=== PATIENT | male | born 1975 | race Caucasian/White ===

== ENCOUNTER → 2020-05-10 17:02 | Outpatient (CLI) | payer OTHER, SELFPAY ==
[2020-03-16 07:56] VITALS: BMI 34.0
== END ==
PROVIDERS: PCP Family Medicine; Referring Provider Nurse Practitioner Acute Care; Visit Provider Nurse Practitioner Acute Care
DX: U07.1 COVID-19 (principal)
CPT/HCPCS: 87635; C9803; U0003

== ENCOUNTER 2020-05-18 12:38 | Inpatient (IN) | payer OTHER, SELFPAY ==
[2020-03-16 07:56] VITALS: BMI 34.0
[2020-05-18] VITALS (10 sets, daily range): BP systolic 103–118; BP diastolic 71–80; PULSE 79–92; RESP 20–36; TEMP 35.8–38.5; O2SAT 90–96; BMI 32.7; BMI 34.4
--- NOTE | 2020-05-18 12:50 | EKG12_ITS ---
Test Reason : SOB Blood Pressure : / mmHG Vent. Rate : 085 BPM Atrial Rate : 085 BPM P-R Int : 180 ms QRS Dur : 096 ms QT Int : 364 ms P-R-T Axes : 013 083 027 degrees QTc Int : 433 ms Normal sinus rhythm Normal ECG Confirmed by LAKSHMI GASCA, XENIA ([id number]), rewrite editor BRIANA VANEGAS ([id number]) on 05/23/2020 9:26:48 AM Referred By: DANIEL Confirmed By:JULIA MARTINS MD
--- NOTE | 2020-05-18 12:50 | RAD_ITS ---
STUDY: X-RAY CHEST REASON FOR EXAM: Male, 44 years old. DX W/COVID 05/12, CONTINUED DIFFICULTY BREATHING, COUGH, SHORTNESS OF BREATH TECHNIQUE: Single AP portable view of the chest. COMPARISON: None. FINDINGS: The lungs are underexpanded. Ill-defined subpleural groundglass opacities are seen more prominent in the lung bases , may represent atypical pneumonia or viral pneumonia (COVID-19 ?). There is no demonstrated pleural abnormality. Normal size heart. Normal mediastinum and sang. Normal visualized pulmonary arteries. Normal visualized aortic arch and descending thoracic aorta. Normal visualized thoracic spine. Normal visualized ribs, clavicles, and shoulders. There is no demonstrated abnormality of the visualized soft tissue structures of the upper abdomen. RAD/Chest 1 View (Portable) IMPRESSION: Ill-defined subpleural groundglass opacities are seen more prominent in the lung bases , may represent atypical pneumonia or viral pneumonia (COVID-19 ?). Electronically Signed: Lisa Gregory, at 13:38 EST Tel , Service support ,
--- NOTE | 2020-05-18 12:51 | ED.VISSUMM ---
- ER Visit Summary Date of Service: 05/18/20 Chief Complaint: Shortness of breath, cough, COVID-19 History of Present Illness: The patient is a 44 M who presents with the above symptoms. He tested + 6 days ago. He continues to have cough and shortness of breath. He has daily fevers that are controlled with ibuprofen. His temperature last night was 102.8 ?F. He tested his oxygen level today and it was 87% on room air. It recovered after he rested. He has no history of any lung problems. He is a non-smoker. He is having a little bit of chest discomfort in the upper part of his chest. Physical Examination: Vital signs reviewed. Pulse ox is 93% on room air currently. HEENT exam unremarkable. Heart is regular rate and rhythm without murmurs. Lungs have rhonchorous breath sounds in the bases bilaterally. Abdomen is soft and nontender. Extremities reveal no edema. Skin exam normal. Neurologic exam normal. Test Results: EKG is sinus rhythm with rate of 85. No ST changes. Laboratory studies show white blood cell count 2.9. Chemistry troponin normal. Chest x-ray shows bilateral groundglass opacities consistent with coronavirus. Emergency Department Course and Treatment: The patient ambulated in the room and his pulse ox was down to 89%. When he rested it came up to 94% but he was in the high 30s to almost 40 when he was ambulating. The patient was given 6 mg of IV Decadron. I feel due to his symptoms he should be admitted to the hospital. Patient was discussed with the hospitalist who admit the patient. Treatment Plan: [] Disposition: Admission Impression: COVID-19, hypoxia This note was generated with [employer] dictation software. It may contain incorrect words, spelling, and punctuation that were not noted in review of the chart prior to signing ED Disposition - Plan for ED Patient: Referrals: Faustino Ellis MD [Primary Care Provider] -
[2020-05-18] MEDS: dexAMETHasone 10 MG/ML Vial 6 MG IV (13:04)
[2020-05-18 13:28] LABS: Anion Gap 5 (5-15); BUN 16 mg/dL (7-18); BUN/Creat Ratio 12.5 RATIO (10-20); Calcium,Total 7.8 mg/dL (8.5-10.1); Chloride 107 mmol/L (98-107); Creatinine, Serum 1.28 mg/dL (0.70-1.30); EST Glomerular Filtration Rate 65 mL/min (>60); Est Glom Filt Rate - Afr Amer 79 mL/min (>60); Estimated Creatinine Clearance 86.52 ml/min; Glucose 87 mg/dL (74-106); Potassium 3.7 mmol/L (3.5-5.1); Sodium Level 139 mmol/L (136-145)
[2020-05-18 13:44] LABS: Absolute Lymphocyte Count 1.08 X10^3/uL (0.83-4.51); Absolute Neutrophil Count 1.5 X10^3/uL (2.0-7.7); Basophil# 0.02 X10^3/uL; Basophil% 0.7 % (0-1); Eosinophil# 0.02 X10^3/uL; Eosinophils% 0.7 % (0-5); Hematocrit 45.1 % (40-54); Hemoglobin 15.1 g/dL (13.0-16.5); Lymphocyte # 1.08 X10^3/ul (4.0); Lymphocyte % 37.6 % (19-41); Mean Corp Hgb Conc 33.5 g/dL (32-36); Mean Corpuscular Volume 89.7 fL (80-94); Mean Platelet Vol. 10.6 fl (6.2-12.0); Monocyte# 0.26 X10^3/uL; Monocyte% 9.1 % (0-10); NRBC Flagged by Analyzer 0 % (0-5); Neutrophil # 1.48 X10^3/uL (2.7-7.7); Neutrophil % 51.6 % (47-70); POSITIVE MORPHOLOGY YES; Platelet Count 144 K/mm3 (150-450); RBC Distribution Width SD 39.7 fl (35.1-43.9); Red Blood Count 5.03 M/mm3 (4.6-6.2); White Blood Count 2.9 K/mm3 (4.4-11.0)
[2020-05-18 13:45] LABS: Differential Indicated SCAN CRITERIA MET
[2020-05-18 13:48] LABS: Differential Comment SCANNED; Reactive Lymphocyte 1+
--- NOTE | 2020-05-18 14:29 | HP.PCM_ITS ---
Problem List (1) COVID-19 Status: Acute (2) Obstructive Sleep Apnea-Hypopnea Syndrome Status: Acute Comment: Overall AHI 10 (3) H/O adenoidectomy Status: Resolved (4) SOB (shortness of breath) on exertion Status: Acute (5) Hemorrhoids Status: Chronic (6) Sleep apnea Status: Chronic (7) Leukopenia Status: Acute (8) Thrombocytopenia Status: Acute History of Present Illness Date of Admission: 05/18/20 Mr Stout is a 44 year old M with a PMH of LUZ and obesity who tested + for COVID 19 6 days ago. He has been managing his symptoms at home with ibuprofen. He reports a fever of 102.8 last pm. Today he was having more SOB, especially noted with exertion, and assessed his SpO2 which was 87% on RA. Since he was more SOB and hypoxic he came to the ED. Sats on arrival here are 93% on RA, but he is tachypneic with a RR in the mid to upper 20's. He is currently afebrile. Besides the fever and SOB he is coughing a lot. The cough is dry and non- productive. He has had some pain in his chest with coughing only across the nipple line. He denies change N/V/diarrhea. His lab work show a leukopenia and thrombocytopenia. LFTs, fibrinogen and d-dimer are pending. His troponin was WNL and the rest of his BMP was unremarkable. CXR shows some RLL infiltrate vs atelectasis. He was given decadron in the ED today and we will admit him to the COVID unit. Past Medical History Past Medical History (Chronic Problems): Chronic Problems (Last Updated 03/16/20 @ 07:51 by Renae Palma) Hemorrhoids (Chronic) Sleep apnea (Chronic) Medical History: Medical History (Last Reviewed 05/18/20 @ 14:[address] Stefanie Roach, DO) SOB (shortness of breath) on exertion (Acute) R06.02 Hemorrhoids (Chronic) K64.9 Sleep apnea (Chronic) G47.30 Allergies No Known Allergies Allergy (Unverified 05/18/20 12:42) Home Medications: Ambulatory Orders Medication Instructions Recorded Ascorbic Acid [Vitamin C] 2,000 mg PO DAILY 05/18/20 Aspirin E.C. [Ecotrin] 325 mg PO DAILY@0800 05/18/20 Zinc 50 mg PO DAILY 05/18/20 Surgical History: Surgical History (Last Reviewed 05/18/20 @ 14:[address] Stefanie Roach DO) H/O adenoidectomy (Resolved) Z90.89 Lives: With Family Smoking Status: Never smoker Tobacco Use: Non-smoker Alcohol: Rare Drugs: None Review of Systems Constitutional: Reports: Chills, Fever, Malaise, Weakness, Fatigue. Denies: Anorexia, Night Sweats, Weight Change Eyes: Denies: Blurred vision, Conjunctivae Inflammation, Drainage, Eyelid Inflammation, Pain, Redness, Vision Change HEENT: Denies: Difficulty Hearing, Difficulty Swallowing, Head Aches, Nasal bleeding, Nasal Congestion, Post Nasal Drip, Sinus Congestion, Sinus Drainage, Sore Throat, Visual Changes Cardiovascular: Denies: Chest Pain, Chest Pressure, Chest Tightness, Edema, Light Headedness, Orthopnea, Palpitations, Paroxysmal Noc. Dyspnea, Syncope Respiratory: Reports: Cough, Pleuritic Pain, Shortness of Breath, Shortness of breath at rest - mild, Shortness of breath upon exertion - more extreme. Denies: Hemoptysis, Sputum production, Wheezing Gastrointestinal: Denies: Abdominal Pain, Constipation, Diarrhea, Dyspepsia, Hematemesis, Hematochezia, Nausea, Melena, Vomiting Genitourinary: Denies: Dysuria Musculoskeletal: Denies: Back Pain, Joint Pain, Joint stiffness, Joint swelling, Joint Tenderness, Muscle pain, Neck Pain Skin: Denies: Dryness, Jaundice, Lesions, Pruritis, Rash, Skin Changes, Wounds Neurological: Denies: Balance problems, Confusion, Focal weakness, Incoordination, Numbness, Tingling, Tremor, Seizures Psychiatric: Denies: Anxiety, Depression Endocrine: Denies: Change in Body Habitus, Heat/ Cold Intolerance, Polydipsia, Polyuria Hematologic/ Lymphatic: Denies: Adenopathy, Anemia, Easy Bruising, Easy Bleeding, Petechiae, Purpura VTE Information - Inpt Only VTE Present on Admission: No VTE Mechan Device Prophylaxis: None VTE Pharm Prophylaxis ordered?: Yes - Physical Exam Vitals/I&O's: Vital Signs Temp Pulse Resp BP Pulse Ox 96.4 F L 87 21 H 103/80 93 05/18/20 14:21 05/18/20 14:21 05/18/20 14:21 05/18/20 14:21 05/18/20 14:21 Oxygen Delivery Method Room Air Weight: 115.666 kg Body Mass Index (BMI) 32.7 General: Alert, Oriented x3, Cooperative, No apparent distress, Well developed, Well nourished, - - Middle Aged WM sitting up in bed, appears comfortable but notably dyspneic with conversation HEENT: Atraumatic, PERRLA, EOMI, Normocephalic, EAC Clear Oral: Moist Mucosa, No Gingival or Mucosal Lesions/ Ulcerations, - - mallampati 2, good dentition Neck: Supple, Trachea Midline, Thyroid Normal Size and Texture Lungs: No rhonchi, No wheeze, Rales - B Base to about 1/2 lung cabrera, - - no extremis or accessory mm use Abdomen: Bowel Sounds Present, Soft, Non Tender, Non-Distended, No hernias noted Extremities: No clubbing, No cyanosis, No edema, Capillary Refill Less than 3 Seconds, Peripheral Pulses Normal Skin: No rashes, No breakdown Musculoskeletal: No Tenderness to Palpation of Joints or Extremities, No Muscle Wasting Neurological: Cranial nerves II-XII grossly intact, Neuro grossly intact, Muscle tone normal, Coordination normal Psych/Mental Status: Normal Affect, Appropriate, - - very pleasant Laboratory Results 05/18/20 12:57: WBC 2.9 L, RBC 5.03, Hgb 15.1, Hct 45.1, MCV 89.7, MCH 30.0, MCHC 33.5, RDW Std Deviation 39.7, RDW Coeff of Audrey 12.0, Plt Count 144 L, MPV 10.6, Immature Gran % (Auto) 0.300, Neut % (Auto) 51.6, Lymph % (Auto) 37.6, [place] % (Auto) 9.1, Eos % (Auto) 0.7, Baso % (Auto) 0.7, Absolute Neuts (auto) 1. 5 L, Absolute Lymphs (auto) 1.08, Nucleated RBC % 0, Differential Comment SCANNED, Reactive Lymphocytes 1+ 05/18/20 12:57: Sodium 139, Potassium 3.7, Chloride 107, Carbon Dioxide 27.0, Anion Gap 5, BUN 16, Creatinine 1.28, Estim Creat Clear Calc 86.52, Est GFR (MDRD) Af Amer 79, Est GFR (MDRD) Non-Af 65, BUN/Creatinine Ratio 12.5, Glucose 87, Calcium 7.8 L, Troponin I < 0.015 05/18/20 12:57: Fibrinogen Pending, D-Dimer Quant (PE/DVT) Pending Current Medications Sodium Chloride (0.9% Saline Lock 10 Ml Syringe) 10 - 40 ml IV UD PRN PRN Reason: SALINE FLUSH Assessment/Plan All Active Problems (Last Updated 03/16/20 @ 07:51 by Renae Palma) COVID-19 (Acute) Leukopenia (Acute) Thrombocytopenia (Acute) Obstructive Sleep Apnea-Hypopnea Syndrome (Acute) H/O adenoidectomy (Resolved) SOB (shortness of breath) on exertion (Acute) Acute COVID PNA -supplemental O2 as needed -IS and Acapella -Decadron 6 mg daily--> 1st dose given in ED -Remdesivir day 1/5 -APAP for fevers -D-dimer and fibrinogen pending -will get CT if elevated -Lovenox 40 mg BID for now and adjust as needed -continue full dose ASA -cont Zinc/vitamin C -hepatic panel pending Acute Leukopenia -suspect related to COVID -monitor Acute Mild Thrombocytopenia -suspect related to COVID -monitor counts LUZ -Autopap ordered for HS Obesity -BMI 32.7-->complicates COVID dx DVT prophylaxis -Lovenox 40 mg BID Code Status -Full Inpatient E&M: 94570 Init Hosp L2
--- NOTE | 2020-05-18 14:42 | PCS.PANDOC ---
PANDEMIC DOCUMENTATION INITIATED: Date: 05/18/2020 Time: 0932
[2020-05-18] MEDS: Albuterol 2.5 MG/3 ML VIAL.NEB. INHALATION ×2 (15:26→19:36)
[2020-05-18] MEDS: Acetaminophen 325 MG Tablet 650 MG PO (15:38)
[2020-05-18 15:55] LABS: Fibrinogen 525 mg/dl (203-444)
--- NOTE | 2020-05-18 16:19 | CT_ITS ---
STUDY: CTA CHEST REASON FOR EXAM: Male, 44 years old. Hypoxia. COVID 19 positive. Fever. RADIATION DOSAGE (If Supplied By Facility): CTDIvol = ( 12.64 ) mGy, DLP = ( 460.69 ) mGycm TECHNIQUE: The examination was performed with the intravenous administration of IV 100mL Isovue-370. Post-processing of the angiographic images was performed, with multiplanar reformation and 3D reconstruction. Individualized dose optimization techniques were used for this CT. COMPARISON: Chest, 05/18/2020. FINDINGS: Normal enhancement of the main pulmonary artery and right and left pulmonary arteries. Normal enhancement of the bilateral peripheral pulmonary arteries. There is no demonstrated pulmonary embolism. Normal thoracic aorta and visualized great vessels. There is no demonstrated aortic dissection. Normal heart and pericardium. Nonspecific subcentimeter mediastinal lymphadenopathy. Normal hilar regions. Normal visualized trachea and bronchi. The lungs are well expanded. There is minimal peripheral patchy groundglass infiltrates most marked in the lower lobes. Evidence of mild consolidation in the posterior lung bases. Normal pleura. Normal chest wall structures. Normal osseous structures. Normal visualized upper abdomen. CT/CTA Chest W/WO Contrast IMPRESSION: 1. No evidence of pulmonary embolus. 2. No aortic dissection or aneurysm. 3. Patchy groundglass infiltrates with consolidation at the lung bases. The findings are consistent with COVID 19 pneumonia. Electronically Signed: Rohit Jauregui DO at 17:13 EST Tel [phone], Service support ,
--- NOTE | 2020-05-18 16:54 | PCM.HOSP.N ---
Hospitalist Note D-dimer elevated and CTA obtained. Shows RLL PE. Will start Eliquis 10 mg BID x 7 days then on 05/26/2019 5 mg BID for at least 3 mos.
[2020-05-18] MEDS: Ascorbic Acid 500 MG Tablet 2000 MG PO (17:02)
[2020-05-18] MEDS: BENZOCAINE/MENTHOL 1 LOZENGE MUCOUS MEM (17:02)
[2020-05-18 17:10] LABS: Bedside Glucose 164 mg/dL (70-110)
[2020-05-18] MEDS: APIXABAN 5 MG TABLET 10 MG PO (18:44)
[2020-05-18 21:50] LABS: Bedside Glucose 188 mg/dL (70-110)
--- NOTE | 2020-05-18 23:03 | CPS ---
Pt. started on AutoPAP, provided by [facility], with a 3L oxygen bleed-in. Pt.'s SpO2 = 95%
[2020-05-19] VITALS (12 sets, daily range): BP systolic 107–139; BP diastolic 64–86; PULSE 68–89; RESP 17–20; TEMP 36.5–36.9; O2SAT 92–95
[2020-05-19] MEDS: BENZOCAINE/MENTHOL 1 LOZENGE MUCOUS MEM (05:10)
[2020-05-19] MEDS: Albuterol 2.5 MG/3 ML VIAL.NEB. INHALATION (05:34)
[2020-05-19 07:31] LABS: Hematocrit 42.6 % (40-54); Hemoglobin 14.6 g/dL (13.0-16.5); Mean Corp Hgb Conc 34.3 g/dL (32-36); Mean Corpuscular Hgb 30.4 pg (27.0-32.0); Mean Corpuscular Volume 88.8 fL (80-94); Mean Platelet Vol. 10.5 fl (6.2-12.0); Platelet Count 168 K/mm3 (150-450); RBC Distribution Width CV 11.9 % (11.6-14.6); RBC Distribution Width SD 38.9 fl (35.1-43.9); White Blood Count 2.8 K/mm3 (4.4-11.0)
[2020-05-19 07:48] LABS: ALB/GLOB Ratio 1.1 RATIO (0.9-2.4); AST(SGOT) 25 U/L (15-37); Alanine Aminotransfer ALT/SGPT 35 U/L (16-61); Albumin, Serum 3.2 g/dL (3.2-5.0); Alkaline Phosphatase 52 U/L (45-117); Anion Gap 7 (5-15); BUN 20 mg/dL (7-18); BUN/Creat Ratio 18.7 RATIO (10-20); Bilirubin, Direct 0.14 mg/dL (0.00-0.30); Chloride 105 mmol/L (98-107); Creatinine, Serum 1.07 mg/dL (0.70-1.30); EST Glomerular Filtration Rate 80 mL/min (>60); Est Glom Filt Rate - Afr Amer 97 mL/min (>60); Glucose 119 mg/dL (74-106); Magnesium 2.4 mg/dL (1.6-2.6); Phosphorus 3.4 mg/dL (2.5-4.9); Potassium 3.9 mmol/L (3.5-5.1); Protein, Total 6.2 g/dL (6.4-8.2); Sodium Level 137 mmol/L (136-145)
--- NOTE | 2020-05-19 07:59 | PCM.PN.HOSP ---
Patient Problems: Active and Suspected Problems (Last Reviewed 05/18/20 @ 14:[address] Stefanie Roach, DO) COVID-19 (Acute) Leukopenia (Acute) Thrombocytopenia (Acute) Obstructive Sleep Apnea-Hypopnea Syndrome (Acute) Overall AHI 10 SOB (shortness of breath) on exertion (Acute) Reason for Visit: Follow-up for acute COVID-19 pneumonia with cough and fever. Objective: Fever, T-max 101.3 Fahrenheit. On 2 L of oxygen. BMI 34.4 Patient admitted with symptoms of intermittent fever, cough mild shortness of breath, hypoxia pulse ox 87% on room air, progressively worsening since 05/12. CTA shows mild peripheral nonobstructive pulmonary embolism. On Eliquis. Patient used CPAP for the first time last night and felt mild comfortable. We will do humidified air with CPAP. Physical exam General: Alert, Oriented x3, Cooperative HEENT: Atraumatic, PERRLA, EOMI, Normocephalic Oral: No Gingival or Mucosal Lesions/ Ulcerations Neck: Supple, No JVD, Negative Carotid Bruits Lungs: Air entry diminished in bilateral lung bases. Bilateral coarse crepitation present. Cardiovascular: Regular rate, Regular Rhythm, Normal S1, Normal S2, No murmurs Abdomen: Bowel Sounds Present, Soft, Non Tender, Non-Distended : No renal angle tenderness. No suprapubic tenderness. Extremities: No edema, Capillary Refill Less than 3 Seconds Skin: No rashes, No breakdown Musculoskeletal: No Tenderness to Palpation of Joints or Extremities Neurological: Cranial nerves II-XII grossly intact, Deep Tendon Reflexes 2+/4 and Symmetrical, Neuro grossly intact Psych/Mental Status: Normal Affect, Appropriate. Vitals/I&O's: Vital Signs Temp Pulse Resp BP Pulse Ox 97.7 F L 85 20 H 107/65 92 05/19/20 03:07 05/19/20 05:34 05/19/20 05:34 05/19/20 03:07 05/19/20 03:07 Oxygen Flow Rate (L/min) 2 Oxygen Delivery Method CPAP Weight: 268 lb 3.2 oz Body Mass Index (BMI) 34.4 Intake and Output for Last 24 Hours 05/17/20 05/18/20 05/19/20 23:59 23:59 23:59 Intake Total 670 / 1470 1400 / 1400 Balance 670 / 1470 1400 / 1400 Laboratory Results 05/18/20 12:57: WBC 2.9 L, RBC 5.03, Hgb 15.1, Hct 45.1, MCV 89.7, MCH 30.0, MCHC 33.5, RDW Std Deviation 39.7, RDW Coeff of Audrey 12.0, Plt Count 144 L, MPV 10.6, Immature Gran % (Auto) 0.300, Neut % (Auto) 51.6, Lymph % (Auto) 37.6, [place] % (Auto) 9.1, Eos % (Auto) 0.7, Baso % (Auto) 0.7, Absolute Neuts (auto) 1.5 L, Absolute Lymphs (auto) 1.08, Nucleated RBC % 0, Differential Comment SCANNED, Reactive Lymphocytes 1+ 05/18/20 12:57: Sodium 139, Potassium 3.7, Chloride 107, Carbon Dioxide 27.0, Anion Gap 5, BUN 16, Creatinine 1.28, Estim Creat Clear Calc 86.52, Est GFR (MDRD) Af Amer 79, Est GFR (MDRD) Non-Af 65, BUN/Creatinine Ratio 12.5, Glucose 87, Calcium 7.8 L, Troponin I < 0.015 05/18/20 15:28: Fibrinogen 525 H, D-Dimer Quant (PE/DVT) 0.90 H* 05/18/20 16:56: POC Glucose 164 H 05/18/20 21:36: POC Glucose 188 H 05/19/20 06:50: Sodium 137, Potassium 3.9, Chloride 105, Carbon Dioxide 25.0, Anion Gap 7, BUN 20 H, Creatinine 1.07, Estim Creat Clear Calc 103.50, Est GFR (MDRD) Af Amer 97, Est GFR (MDRD) Non-Af 80, BUN/Creatinine Ratio 18.7, Glucose 119 H, Calcium 8.0 L, Phosphorus 3.4, Magnesium 2.4, Total Bilirubin 0.40, Direct Bilirubin 0.14, AST 25, ALT 35, Alkaline Phosphatase 52, Total Protein 6.2 L, Albumin 3.2, Globulin 3.0, Albumin/Globulin Ratio 1.1 05/19/20 06:50: WBC 2.8 L, RBC 4.80, Hgb 14.6, Hct 42.6, MCV 88.8, MCH 30.4, MCHC 34.3, RDW Std Deviation 38.9, RDW Coeff of Audrey 11.9, Plt Count 168, MPV 10.5 Current Medications Acetaminophen (Acetaminophen 325 Mg Tablet) 650 mg PO Q6H PRN PRN PRN Reason: Pain Score 1-10/Temp > 100.7 F Last Admin: 05/18/20 15:38 Dose: 650 mg Documented by: Albuterol Sulfate (Albuterol 2.5 Mg/3 Ml Vial.Neb.) 2.5 mg INHALATION Q2H PRN PRN PRN Reason: Shortness of Breath/Wheezing Last Admin: 05/19/20 05:34 Dose: 2.5 mg Documented by: Apixaban (Apixaban 5 Mg Tablet) 10 mg PO BID [facility] Stop: 05/25/20 22:01 Last Admin: 05/18/20 18:44 Dose: 10 mg Documented by: Apixaban (Apixaban 5 Mg Tablet) 5 mg PO BID [facility] Ascorbic Acid (Ascorbic Acid 500 Mg Tablet) 2,000 mg PO DAILY [facility] Last Admin: 05/18/20 17:02 Dose: 2,000 mg Documented by: Dexamethasone (Dexamethasone 4 Mg Tablet) 6 mg PO DAILY [facility] Docusate Sodium (Docusate Sodium 100 Mg Capsule) 100 mg PO BID PRN PRN PRN Reason: Constipation Remdesivir 100 mg/ Sodium (Chloride) 250 mls @ 125 mls/hr IV DAILY [facility] Stop: 05/22/20 11:59 Melatonin (Melatonin 3 Mg Tablet) 3 mg PO QHS PRN PRN PRN Reason: INSOMNIA Ondansetron HCl (Ondansetron 4 Mg/2 Ml Vial) 4 mg IV Q8H PRN PRN PRN Reason: NAUSEA/VOMITING Sodium Chloride (0.9% Saline Lock 10 Ml Syringe) 10 - 40 ml IV UD PRN PRN Reason: SALINE FLUSH Throat Lozenges (Benzocaine/Menthol 1 Lozenge) 1 lozenge MUCOUS MEM Q2H PRN PRN PRN Reason: SORE THROAT Last Admin: 05/19/20 05:10 Dose: 1 lozenge Documented by: Zinc Sulfate (Zinc Sulfate (50mg Elemental) 220 Mg Capsule) 220 mg PO DAILY [facility] Last Admin: 05/18/20 17:06 Dose: 220 mg Documented by: STROKE Vital Signs/Narrative: Vital Signs Pulse Resp 05/19/20 05:34 85 20 H Medical Necessity - Tobacco Use Smoking Status: Never smoker Tobacco Use: Non-smoker Assessment/Plan All Active Problems (Last Reviewed 05/18/20 @ 14:[address] Stefanie Roach, DO) COVID-19 (Acute) Leukopenia (Acute) Thrombocytopenia (Acute) Obstructive Sleep Apnea-Hypopnea Syndrome (Acute) H/O adenoidectomy (Resolved) SOB (shortness of breath) on exertion (Acute) This is a 44-year-old gentleman with no significant past medical history except obstructive sleep apnea on auto PEEP was admitted with 6 days history of fever, chills, cough, mild shortness of breath and mild hypoxia. CTPA showed bilateral PE and on Eliquis. Acute bilateral COVID-19 pneumonia with bilateral pulmonary emboli: Patient is being admitted on MedSurg. Patient tested positive for COVID-19 on 6 days ago, 05/12/2020. CT chest was individually reviewed although reported negative and first report, subsequently an addendum reported bilateral small nonobstructive thrombus and peripheral pulmonary artery of right medial basal segment and peripheral left lower lobe pulmonary artery. Patient on remdesivir, Decadron, oxygen therapy, zinc and vitamin C. Patient was seen by ID. On therapeutic dose of Eliquis. Labs reviewed and shows elevated D-dimer, leukopenia, neutropenia but normal lymphocyte. Fibrinogen elevated. Patient further said his father has history of thromboembolism. Continue incentive spirometry and chest physiotherapy. On Mucinex. Mild thrombocytopenia has resolved. Sleep apnea: Auto PAP. Add humidified air. 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 He is well aware of weight loss and diet. CODE STATUS: Full code I discussed with the patient's brother, Dr. Clinton Stout gave the clinical update and discussed treatment plan. Clinical Impression(s) from Imaging Studies Chest X-Ray 05/18/20 12:50 IMPRESSION: Ill-defined subpleural groundglass opacities are seen more prominent in the lung bases , may represent atypical pneumonia or viral pneumonia (COVID-19 ?). Electronically Signed: Lisa Gregory, at 13:38 EST Tel , Service support , Clinical Impression(s) from Imaging Studies Chest X-Ray 05/18/20 12:50 IMPRESSION: Ill-defined subpleural groundglass opacities are seen more prominent in the lung bases , may represent atypical pneumonia or viral pneumonia (COVID-19 ?). Electronically Signed: Gonzalez Colt, at 13:38 EST Tel , Service support , Chest CTA 05/18/20 16:19 IMPRESSION: 1. No evidence of pulmonary embolus. 2. No aortic dissection or aneurysm. 3. Patchy groundglass infiltrates with consolidation at the lung bases. The findings are consistent with COVID 19 pneumonia. M: 05/18/20 1823 Inpatient E&M: 72618 Subs Hosp L2
[2020-05-19] MEDS: Ascorbic Acid 500 MG Tablet 2000 MG PO (08:17)
[2020-05-19] MEDS: APIXABAN 5 MG TABLET 10 MG PO ×2 (08:18→20:57)
[2020-05-19] MEDS: dexAMETHasone 4 MG Tablet 6 MG PO (08:18)
[2020-05-19 08:46] LABS: Bedside Glucose 110 mg/dL (70-110)
--- NOTE | 2020-05-19 13:11 | PCM.HP.ID ---
Problem List (1) COVID-19 Status: Acute Reason for Consult: covid Consulted by: Dr. Mckeon History of Present Illness: The patient is a 44 year old M presented with sx since 05/10, developed cough, headache, tested (+) covid. Past few days with worsening fever, chills, dyspnea, fatigue. Slight change in taste. and son also sick, did not get tested, doing ok. Sats dropped into upper 80s, came to ED, admitted on dex, remdesivir. Feeling about the same today. Full ROS performed and neg except as noted above. - Medical History Past Medical History (Chronic Problems): Chronic Problems (Last Reviewed 05/18/20 @ 14:[address] Stefanie Roach, DO) Hemorrhoids (Chronic) Sleep apnea (Chronic) Allergies/Adverse Reactions: Allergies No Known Allergies Allergy (Unverified 05/18/20 12:42) Home Medications: Ambulatory Orders Medication Instructions Recorded Ascorbic Acid [Vitamin C] 2,000 mg PO DAILY 05/18/20 Aspirin E.C. [Ecotrin] 325 mg PO DAILY@0800 05/18/20 Zinc 50 mg PO DAILY 05/18/20 - Social History Tobacco Use: non-smoker Vital Signs Temp Pulse Resp BP Pulse Ox 98.2 F 74 20 H 108/64 94 05/19/20 09:00 05/19/20 09:00 05/19/20 09:00 05/19/20 09:00 05/19/20 09:00 Oxygen Flow Rate (L/min) 3 Oxygen Delivery Method Nasal Cannula Weight: 121.653 kg Body Mass Index (BMI) 34.4 Laboratory Tests Past 24 Hrs 05/18/20 05/18/20 05/18/20 12:57 12:57 15:28 WBC 2.9 L RBC 5.03 Hgb 15.1 Hct 45.1 MCV 89.7 MCH 30.0 MCHC 33.5 RDW Std Deviation 39.7 RDW Coeff of Audrey 12.0 Plt Count 144 L MPV 10.6 Immature Gran % (Auto) 0.300 Neut % (Auto) 51.6 Lymph % (Auto) 37.6 [place] % (Auto) 9.1 Eos % (Auto) 0.7 Baso % (Auto) 0.7 Absolute Neuts (auto) 1.5 L Absolute Lymphs (auto) 1.08 Nucleated RBC % 0 Differential Comment SCANNED Reactive Lymphocytes 1+ Fibrinogen 525 H D-Dimer Quant (PE/DVT) 0.90 H* Sodium 139 Potassium 3.7 Chloride 107 Carbon Dioxide 27.0 Anion Gap 5 BUN 16 Creatinine 1.28 Estim Creat Clear Calc 86.52 Est GFR (MDRD) Af Amer 79 Est GFR (MDRD) Non-Af 65 BUN/Creatinine Ratio 12.5 Glucose 87 Calcium 7.8 L Phosphorus Magnesium Total Bilirubin Direct Bilirubin AST ALT Alkaline Phosphatase Troponin I < 0.015 Total Protein Albumin Globulin Albumin/Globulin Ratio 05/19/20 05/19/20 06:50 06:50 WBC 2.8 L RBC 4.80 Hgb 14.6 Hct 42.6 MCV 88.8 MCH 30.4 MCHC 34.3 RDW Std Deviation 38.9 RDW Coeff of Audrey 11.9 Plt Count 168 MPV 10.5 Immature Gran % (Auto) Neut % (Auto) Lymph % (Auto) [place] % (Auto) Eos % (Auto) Baso % (Auto) Absolute Neuts (auto) Absolute Lymphs (auto) Nucleated RBC % Differential Comment Reactive Lymphocytes Fibrinogen D-Dimer Quant (PE/DVT) Sodium 137 Potassium 3.9 Chloride 105 Carbon Dioxide 25.0 Anion Gap 7 BUN 20 H Creatinine 1.07 Estim Creat Clear Calc 103.50 Est GFR (MDRD) Af Amer 97 Est GFR (MDRD) Non-Af 80 BUN/Creatinine Ratio 18.7 Glucose 119 H Calcium 8.0 L Phosphorus 3.4 Magnesium 2.4 Total Bilirubin 0.40 Direct Bilirubin 0.14 AST 25 ALT 35 Alkaline Phosphatase 52 Troponin I Total Protein 6.2 L Albumin 3.2 Globulin 3.0 Albumin/Globulin Ratio 1.1 - Other Studies Radiology: [] reviewed Other Studies: [] Route of nutrition/ use of supplements: [] Nutritional Intake: [] IV Site: [] Matute Catheter: [] - Physical Exam General: Alert, Oriented x3, Cooperative, No apparent distress HEENT: Atraumatic, PERRLA, EOMI Neck: Supple, No Nodes Lungs: Diminished Cardiovascular: Regular rate, Regular Rhythm Abdomen: Soft, Non Tender, Non-Distended Extremities: No edema Skin: No rashes IV Site: Peripheral, without redness Musculoskeletal: No Tenderness to Palpation of Joints or Extremities Neurological: Cranial nerves II-XII grossly intact - Assessment/Plan Antibiotics: [] Assessment/Plan: [] Active and Suspected Problems (Last Reviewed 05/18/20 @ 14:[address] Stefanie Roach, DO) COVID-19 (Acute) Leukopenia (Acute) Thrombocytopenia (Acute) Obstructive Sleep Apnea-Hypopnea Syndrome (Acute) Overall AHI 10 SOB (shortness of breath) on exertion (Acute) covid with hypoxia - sx started 05/10, and son also sick. D-dimer 0.9, CT showed PE. Started on eliquis. On dex and remdesivir. Plan on 20 day quarantine from start of symptoms, 10 days total of dex. Will follow, thank you. D/w nursing.
[2020-05-19] MEDS: guaiFENesin 1,200 MG Tablet 1200 MG PO ×2 (15:13→20:57)
--- NOTE | 2020-05-19 15:19 | CASEMGMT ---
Addendum entered by Jose Enrique Brooks 05/19/20 15:36: [facility], [facility], [place] or [facility]. Scripts attached to Green sheet on chart. Original Note: TRANG CM Note: attempted call x 2 to patient room. No answer. Gely MEDINAN TRANG ACM
[2020-05-20] VITALS (16 sets, daily range): BP systolic 98–122; BP diastolic 68–82; PULSE 58–89; RESP 18–20; TEMP 36.4–36.8; O2SAT 92–94
--- NOTE | 2020-05-20 00:27 | CPS ---
SLEEP LAB AUTO PAP WITH 2L OXYGEN BLEED IN
[2020-05-20 05:12] LABS: Hematocrit 43.2 % (40-54); Hemoglobin 14.2 g/dL (13.0-16.5); Mean Corp Hgb Conc 32.9 g/dL (32-36); Mean Corpuscular Hgb 29.6 pg (27.0-32.0); Mean Platelet Vol. 9.8 fl (6.2-12.0); Platelet Count 205 K/mm3 (150-450); RBC Distribution Width CV 12.2 % (11.6-14.6); RBC Distribution Width SD 40.8 fl (35.1-43.9); White Blood Count 5.5 K/mm3 (4.4-11.0)
[2020-05-20 05:39] LABS: ALB/GLOB Ratio 0.9 RATIO (0.9-2.4); AST(SGOT) 21 U/L (15-37); Alanine Aminotransfer ALT/SGPT 35 U/L (16-61); Albumin, Serum 3.1 g/dL (3.2-5.0); Alkaline Phosphatase 53 U/L (45-117); Anion Gap 6 (5-15); BUN 27 mg/dL (7-18); BUN/Creat Ratio 26.2 RATIO (10-20); Calcium,Total 8.2 mg/dL (8.5-10.1); Chloride 107 mmol/L (98-107); Creatinine, Serum 1.03 mg/dL (0.70-1.30); EST Glomerular Filtration Rate 83 mL/min (>60); Est Glom Filt Rate - Afr Amer 101 mL/min (>60); Estimated Creatinine Clearance 107.52 ml/min; Globulin 3.4 g/dL (2.2-4.2); Glucose 123 mg/dL (74-106); Potassium 4.4 mmol/L (3.5-5.1); Protein, Total 6.5 g/dL (6.4-8.2); Sodium Level 138 mmol/L (136-145)
--- NOTE | 2020-05-20 08:01 | PN_ITS ---
Patient Problems: Active and Suspected Problems (Last Reviewed 05/18/20 @ 14:[address] Stefanie Roach, DO) COVID-19 (Acute) Leukopenia (Acute) Thrombocytopenia (Acute) Obstructive Sleep Apnea-Hypopnea Syndrome (Acute) Overall AHI 10 SOB (shortness of breath) on exertion (Acute) Reason for Visit: Follow-up for acute hypoxic respiratory insufficiency from COVID-19 pneumonia Objective: Afebrile. On 2 L of oxygen. CPAP at night. Blood pressure within normal limit. Patient could not sleep last night and looks exhausted and tired. Gets short of breath on coughing bouts. Patient able to bring up phlegm. Physical exam General: Alert, Oriented x3, Cooperative HEENT: Atraumatic, PERRLA, EOMI, Normocephalic Oral: No Gingival or Mucosal Lesions/ Ulcerations Neck: Supple, No JVD, Negative Carotid Bruits Lungs: Air entry diminished in bilateral lung bases. Bilateral coarse crepitations present. Cardiovascular: Regular rate, Regular Rhythm, Normal S1, Normal S2, No murmurs Abdomen: Bowel Sounds Present, Soft, Non Tender, Non-Distended : No renal angle tenderness. No suprapubic tenderness. Extremities: No edema, Capillary Refill Less than 3 Seconds Skin: No rashes, No breakdown Musculoskeletal: No Tenderness to Palpation of Joints or Extremities Neurological: Cranial nerves II-XII grossly intact, Deep Tendon Reflexes 2+/4 and Symmetrical, Neuro grossly intact Psych/Mental Status: Normal Affect, Appropriate. Vitals/I&O's: Vital Signs Temp Pulse Resp BP Pulse Ox 98.2 F 63 18 115/82 H 92 05/20/20 02:40 05/20/20 07:10 05/20/20 02:40 05/20/20 02:40 05/20/20 02:40 Oxygen Flow Rate (L/min) 2 Oxygen Delivery Method CPAP Weight: 268 lb 3.183 oz Body Mass Index (BMI) 34.4 Intake and Output for Last 24 Hours 05/18/20 05/19/20 05/20/20 23:59 23:59 23:59 Intake Total 670 / 1470 2250 / 2250 Balance 670 / 1470 2250 / 2250 Laboratory Results 05/19/20 08:10: POC Glucose 110 05/20/20 04:54: WBC 5.5, RBC 4.80, Hgb 14.2, Hct 43.2, MCV 90.0, MCH 29.6, MCHC 32.9, RDW Std Deviation 40.8, RDW Coeff of Audrey 12.2, Plt Count 205, MPV 9.8 05/20/20 04:54: Sodium 138, Potassium 4.4, Chloride 107, Carbon Dioxide 25.0, Anion Gap 6, BUN 27 H, Creatinine 1.03, Estim Creat Clear Calc 107.52, Est GFR (MDRD) Af Amer 101, Est GFR (MDRD) Non-Af 83, BUN/Creatinine Ratio 26.2 H, Glucose 123 H, Calcium 8.2 L, Total Bilirubin 0.40, AST 21, ALT 35, Alkaline Phosphatase 53, Total Protein 6.5, Albumin 3.1 L, Globulin 3.4, Albumin/Globulin Ratio 0.9 Current Medications Acetaminophen (Acetaminophen 325 Mg Tablet) 650 mg PO Q6H PRN PRN PRN Reason: Pain Score 1-10/Temp > 100.7 F Last Admin: 05/18/20 15:38 Dose: 650 mg Documented by: Albuterol Sulfate (Albuterol 2.5 Mg/3 Ml Vial.Neb.) 2.5 mg INHALATION Q2H PRN PRN PRN Reason: Shortness of Breath/Wheezing Last Admin: 05/19/20 05:34 Dose: 2.5 mg Documented by: Apixaban (Apixaban 5 Mg Tablet) 10 mg PO BID [facility] Stop: 05/25/20 22:01 Last Admin: 05/19/20 20:57 Dose: 10 mg Documented by: Apixaban (Apixaban 5 Mg Tablet) 5 mg PO BID [facility] Ascorbic Acid (Ascorbic Acid 500 Mg Tablet) 2,000 mg PO DAILY [facility] Last Admin: 05/19/20 08:17 Dose: 2,000 mg Documented by: Dexamethasone (Dexamethasone 4 Mg Tablet) 6 mg PO DAILY [facility] Stop: 05/27/20 10:01 Last Admin: 05/19/20 08:18 Dose: 6 mg Documented by: Docusate Sodium (Docusate Sodium 100 Mg Capsule) 100 mg PO BID PRN PRN PRN Reason: Constipation Guaifenesin (Guaifenesin 1,200 Mg Tablet) 1,200 mg PO BID [facility] Last Admin: 05/19/20 20:57 Dose: 1,200 mg Documented by: Remdesivir 100 mg/ Sodium (Chloride) 250 mls @ 125 mls/hr IV DAILY [facility] Stop: 05/22/20 11:59 Last Infusion: 05/19/20 14:17 Dose: Infused Documented by: Melatonin (Melatonin 3 Mg Tablet) 3 mg PO QHS PRN PRN PRN Reason: INSOMNIA Ondansetron HCl (Ondansetron 4 Mg/2 Ml Vial) 4 mg IV Q8H PRN PRN PRN Reason: NAUSEA/VOMITING Sodium Chloride (0.9% Saline Lock 10 Ml Syringe) 10 - 40 ml IV UD PRN PRN Reason: SALINE FLUSH Throat Lozenges (Benzocaine/Menthol 1 Lozenge) 1 lozenge MUCOUS MEM Q2H PRN PRN PRN Reason: SORE THROAT Last Admin: 05/19/20 05:10 Dose: 1 lozenge Documented by: Zinc Sulfate (Zinc Sulfate (50mg Elemental) 220 Mg Capsule) 220 mg PO DAILY [facility] Last Admin: 05/19/20 08:18 Dose: 220 mg Documented by: STROKE Vital Signs/Narrative: Vital Signs Pulse 05/20/20 07:10 63 Medical Necessity - Tobacco Use Smoking Status: Never smoker Tobacco Use: Non-smoker Assessment/Plan All Active Problems (Last Reviewed 05/18/20 @ 14:[address] Stefanie Roach DO) COVID-19 (Acute) Leukopenia (Acute) Thrombocytopenia (Acute) Obstructive Sleep Apnea-Hypopnea Syndrome (Acute) H/O adenoidectomy (Resolved) SOB (shortness of breath) on exertion (Acute) This is a 44-year-old gentleman with no significant past medical history except obstructive sleep apnea on auto PEEP was admitted with 6 days history of fever, chills, cough, mild shortness of breath and mild hypoxia. CTPA showed bilateral PE and on Eliquis. 1. Acute bilateral COVID-19 pneumonia with bilateral pulmonary emboli: Patient is being admitted on [facility]. Patient tested positive for COVID-19 on 6 days ago, 05/12/2020. CT chest was individually reviewed although reported negative and first report, subsequently an addendum reported bilateral small nonobstructive thrombus and peripheral pulmonary artery of right medial basal segment and peripheral left lower lobe pulmonary artery. Patient on remdesivir, Decadron, oxygen therapy, zinc and vitamin C. Patient was seen by ID. On therapeutic dose of Eliquis. Labs reviewed and shows elevated D-dimer, leukopenia, neutropenia but normal lymphocyte. Fibrinogen elevated. Patient further said his father has history of thromboembolism. Continue incentive spirometry and chest physiotherapy. On Mucinex. Mild thrombocytopenia has resolved. Sleep apnea: Auto C-PAP. Patient had humidified air. 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 He is well aware of weight loss and diet. CODE STATUS: Full code I discussed with the patient's brother, Dr. Clinton Stout gave the clinical update and discussed treatment plan. Clinical Impression(s) from Imaging Studies Chest X-Ray 05/18/20 12:50 IMPRESSION: Ill-defined subpleural groundglass opacities are seen more prominent in the lung bases , may represent atypical pneumonia or viral pneumonia (COVID-19 ?). Electronically Signed: Lisa Gregory, at 13:38 EST Tel , Service support , Clinical Impression(s) from Imaging Studies Chest X-Ray 05/18/20 12:50 IMPRESSION: Ill-defined subpleural groundglass opacities are seen more prominent in the lung bases , may represent atypical pneumonia or viral pneumonia (COVID-19 ?). Electronically Signed: Lisa Gregory, at 13:38 EST Tel , Service support , Chest CTA 05/18/20 16:19 IMPRESSION: 1. No evidence of pulmonary embolus. 2. No aortic dissection or aneurysm. 3. Patchy groundglass infiltrates with consolidation at the lung bases. The findings are consistent with COVID 19 pneumonia. M: 05/18/20 1823 Inpatient E&M: 32369 Subs Hosp L2
[2020-05-20] MEDS: Ascorbic Acid 500 MG Tablet 2000 MG PO (10:32)
[2020-05-20] MEDS: APIXABAN 5 MG TABLET 10 MG PO ×2 (10:33→22:14)
[2020-05-20] MEDS: dexAMETHasone 4 MG Tablet 6 MG PO (10:34)
[2020-05-20] MEDS: 0.9% Saline Lock 10 ML Syringe IV (10:35)
[2020-05-20] MEDS: guaiFENesin 1,200 MG Tablet 1200 MG PO ×2 (10:35→22:14)
--- NOTE | 2020-05-20 12:07 | NURSING ---
At approximately 1030 this morning, This nurse decreased oxygen from 2L NC to 1.5L NC and pt seems to be tolerating well at rest. PT is on a step down monitor and can see his spo2 at the bedside but also, this nurse can monitor from the desk.
[2020-05-21] VITALS (9 sets, daily range): BP systolic 105–111; BP diastolic 63–72; PULSE 56–72; RESP 18–20; TEMP 36.4–36.7; O2SAT 89–95
[2020-05-21 07:09] LABS: Hematocrit 43.3 % (40-54); Hemoglobin 14.6 g/dL (13.0-16.5); Mean Corp Hgb Conc 33.7 g/dL (32-36); Mean Corpuscular Hgb 30.2 pg (27.0-32.0); Mean Corpuscular Volume 89.5 fL (80-94); Platelet Count 211 K/mm3 (150-450); RBC Distribution Width CV 11.9 % (11.6-14.6); RBC Distribution Width SD 39.2 fl (35.1-43.9); Red Blood Count 4.84 M/mm3 (4.6-6.2); White Blood Count 6.9 K/mm3 (4.4-11.0)
[2020-05-21 07:39] LABS: ALB/GLOB Ratio 0.9 RATIO (0.9-2.4); AST(SGOT) 34 U/L (15-37); Alanine Aminotransfer ALT/SGPT 55 U/L (16-61); Albumin, Serum 3.1 g/dL (3.2-5.0); Alkaline Phosphatase 52 U/L (45-117); Anion Gap 7 (5-15); BUN 23 mg/dL (7-18); BUN/Creat Ratio 22.8 RATIO (10-20); Calcium,Total 8.2 mg/dL (8.5-10.1); Chloride 107 mmol/L (98-107); Creatinine, Serum 1.01 mg/dL (0.70-1.30); EST Glomerular Filtration Rate 85 mL/min (>60); Est Glom Filt Rate - Afr Amer 103 mL/min (>60); Estimated Creatinine Clearance 109.65 ml/min; Globulin 3.3 g/dL (2.2-4.2); Glucose 103 mg/dL (74-106); Potassium 4.1 mmol/L (3.5-5.1); Protein, Total 6.4 g/dL (6.4-8.2); Sodium Level 139 mmol/L (136-145)
--- NOTE | 2020-05-21 09:03 | DCINST_ITS ---
- Discharge Diagnoses Current Active Problems: Current Active and Chronic Problems (Last Reviewed 05/18/20 @ 14:[address] Stefanie Roach, DO) COVID-19 (Acute) Leukopenia (Acute) Thrombocytopenia (Acute) Obstructive Sleep Apnea-Hypopnea Syndrome (Acute) Overall AHI 10 SOB (shortness of breath) on exertion (Acute) Hemorrhoids (Chronic) Sleep apnea (Chronic) You will use the following diet at home:: Regular Your food should be the consistency of: Regular Discharge Activity: May Not Drive - SELF Quarantine for 2 weeks from symtom onset, until 05/26/2019 Call your doctor if you observe: Fever of 101 or Higher, Coldness, Increased Pain, Numbness or Tingling, Change in Color, Inability to urinate, Inability to have a bowel movement, Shortness of breath, Dizziness, Fainting spells, Swelling in the ankles, Chest pain, Prolonged hiccoughing, Increased palpitations (irregular heartbeat), Calf discomfort, Uncontrolled pain Allergies/Adverse Reactions: Allergies No Known Allergies Allergy (Unverified 05/18/20 12:42) Medications to take at Discharge Ascorbic Acid [Vitamin C] 2,000 mg PO DAILY 05/18/20 Aspirin E.C. [Ecotrin] 325 mg PO DAILY@0800 05/18/20 Zinc 50 mg PO DAILY 05/18/20 Albuterol IH (ProAir) [Proair Hfa] 2 puff INHALATION Q4H PRN PRN #1 inhaler 05/21/20 Apixaban [Eliquis] 5 mg PO BID #60 tab 05/21/20 Apixaban [Eliquis] 10 mg PO BID #5 tab 05/21/20 Dexamethasone [Decadron] 6 mg PO DAILY #6 tab 05/21/20 Guaifenesin/Pseudoephedrne HCl [Mucinex D ER 1,200-120 mg Tab] 1 ea PO BID #14 tab.er.12h 05/21/20 The following prescriptions were given: Dexamethasone [Decadron] 6 mg PO DAILY #6 tab Transmission Status: Pending to [facility] #40 Apixaban [Eliquis] 10 mg PO BID #5 tab Transmission Status: Pending to [facility]40 Apixaban [Eliquis] 5 mg PO BID #60 tab Transmission Status: Pending to [facility]40 Guaifenesin/Pseudoephedrne HCl [Mucinex D ER 1,200-120 mg Tab] 1 ea PO BID #14 tab.er.12h Transmission Status: Pending to [facility] #40 Albuterol IH (ProAir) [Proair Hfa] 2 puff INHALATION Q4H PRN PRN #1 inhaler PRN Reason: Shortness Of Breath Transmission Status: Pending to [facility] #40 Primary Care Physician: Faustino Ellis MD [Primary Care Provider] - Please follow up with your Primary Care Physician in: in 2 weeks Test Results: Test results from this visit will be discussed in further detail at your follow- up appointment, if applicable.
--- NOTE | 2020-05-21 09:06 | PCM.DC.SUM ---
Discharge Date and Diagnosis - Problem List Patient Problems: Active and Suspected Problems (Last Reviewed 05/18/20 @ 14:[address] Stefanie Roach DO) COVID-19 (Acute) Leukopenia (Acute) Thrombocytopenia (Acute) Obstructive Sleep Apnea-Hypopnea Syndrome (Acute) Overall AHI 10 SOB (shortness of breath) on exertion (Acute) Date of Admission: 05/18/20 Date of Discharge: 05/21/20 - Primary Discharge Diagnosis Acute Problems: Active Problems (Last Reviewed 05/18/20 @ 14:[address] Stefanie Roach DO) COVID-19 (Acute) Leukopenia (Acute) Thrombocytopenia (Acute) Obstructive Sleep Apnea-Hypopnea Syndrome (Acute) Overall AHI 10 SOB (shortness of breath) on exertion (Acute) - Secondary Discharge Diagnosis Chronic Problems: Chronic Problems (Last Reviewed 05/18/20 @ 14:[address] Stefanie Roach DO) Hemorrhoids (Chronic) Sleep apnea (Chronic) Hospital Course and Treatment Summary of Care Provided: [] This is a 44-year-old gentleman with no significant past medical history except obstructive sleep apnea on auto PEEP was admitted with 6 days history of fever, chills, cough, mild shortness of breath and mild hypoxia. CTPA showed bilateral PE and on Eliquis. 1. Acute bilateral COVID-19 pneumonia with bilateral pulmonary emboli: Patient is being admitted on [facility]. Patient tested positive for COVID-19 on 6 days ago, 05/12/2020. CT chest was individually reviewed although reported negative and first report, subsequently an addendum reported bilateral small nonobstructive thrombus and peripheral pulmonary artery of right medial basal segment and peripheral left lower lobe pulmonary artery. Patient on remdesivir, Decadron, oxygen therapy, zinc and vitamin C. Patient was seen by ID. On therapeutic dose of Eliquis. Labs reviewed and shows elevated D-dimer, leukopenia, neutropenia but normal lymphocyte. Fibrinogen elevated. Patient further said his father has history of thromboembolism. Continue incentive spirometry and chest physiotherapy. On Mucinex. Mild thrombocytopenia has resolved. Discussed with the patient and patient's brother Dr. Clinton Stout regarding discharge medications. Discharged on Eliquis 10 mg twice daily for total of 8 more doses and then 5 mg twice daily to continue at least for 3 months. Prescriptions also sent for Mucinex D ER, albuterol inhaler and Decadron. Decadron to complete a total of 10 days. Sleep apnea: Auto C-PAP. Patient has this at home. 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 He is well aware of weight loss and diet. CODE STATUS: Full code Discharge medication reconciliation done. Discharge follow-up instructions completed. Discharge process discussed with the patient and all questions were answered to patient's satisfaction. [facility] was called and dosing instruction of Eliquis discussed. Total time spent, exact 35 minutes on discharge meds reconciliation, examination, coordination of care with nurses and ancillary staff, review of imaging and blood test and discussion with the patient on follow-up instructions Clinical Impression(s) from Imaging Studies Chest X-Ray 05/18/20 12:50 IMPRESSION: Ill-defined subpleural groundglass opacities are seen more prominent in the lung bases , may represent atypical pneumonia or viral pneumonia (COVID-19 ?). Electronically Signed: Lisa Gregory, at 13:38 EST Tel , Service support , Clinical Impression(s) from Imaging Studies Chest X-Ray 05/18/20 12:50 IMPRESSION: Ill-defined subpleural groundglass opacities are seen more prominent in the lung bases , may represent atypical pneumonia or viral pneumonia (COVID-19 ?). Electronically Signed: Lisa Gregory, at 13:38 EST Tel , Service support , Chest CTA 05/18/20 16:19 IMPRESSION: 1. No evidence of pulmonary embolus. 2. No aortic dissection or aneurysm. 3. Patchy groundglass infiltrates with consolidation at the lung bases. The findings are consistent with COVID 19 pneumonia. M: 05/18/20 1823 Laboratory Results 05/21/20 06:57: WBC 6.9, RBC 4.84, Hgb 14.6, Hct 43.3, MCV 89.5, MCH 30.2, MCHC 33.7, RDW Std Deviation 39.2, RDW Coeff of Audrey 11.9, Plt Count 211, MPV 10.0 05/21/20 06:57: Sodium 139, Potassium 4.1, Chloride 107, Carbon Dioxide 25.0, Anion Gap 7, BUN 23 H, Creatinine 1.01, Estim Creat Clear Calc 109.65, Est GFR (MDRD) Af Amer 103, Est GFR (MDRD) Non-Af 85, BUN/Creatinine Ratio 22.8 H, Glucose 103, Calcium 8.2 L, Total Bilirubin 0.50, AST 34, ALT 55, Alkaline Phosphatase 52, Total Protein 6.4, Albumin 3.1 L, Globulin 3.3, Albumin/Globulin Ratio 0.9 Patient Problems: Active and Suspected Problems (Last Reviewed 05/18/20 @ 14:[address] Stefanie Roach, DO) COVID-19 (Acute) Leukopenia (Acute) Thrombocytopenia (Acute) Obstructive Sleep Apnea-Hypopnea Syndrome (Acute) Overall AHI 10 SOB (shortness of breath) on exertion (Acute) Objective: Patient heart rate and blood pressure in acceptable limit. No fever. Patient denies shortness of breath. Patient pulse ox at rest is normal but decreased when he has paroxysms of cough. Patient is able to bring up phlegm. Physical exam General: Alert, Oriented x3, Cooperative HEENT: Atraumatic, PERRLA, EOMI, Normocephalic Oral: No Gingival or Mucosal Lesions/ Ulcerations Neck: Supple, No JVD, Negative Carotid Bruits Lungs: Air entry equal in bilateral lungs. Mild bilateral coarse crepitation Cardiovascular: Regular rate, Regular Rhythm, Normal S1, Normal S2, No murmurs Abdomen: Bowel Sounds Present, Soft, Non Tender, Non-Distended : No renal angle tenderness. No suprapubic tenderness. Extremities: No edema, Capillary Refill Less than 3 Seconds Skin: No rashes, No breakdown Musculoskeletal: No Tenderness to Palpation of Joints or Extremities Neurological: Cranial nerves II-XII grossly intact, Deep Tendon Reflexes 2+/4 and Symmetrical, Neuro grossly intact Psych/Mental Status: Normal Affect, Appropriate. - Physical Exam Vitals/I&O's: Vital Signs Temp Pulse Resp BP Pulse Ox 97.6 F L 56 L 20 H 111/63 91 05/21/20 04:08 05/21/20 05:59 05/21/20 04:11 05/21/20 04:08 05/21/20 07:05 Oxygen Flow Rate (L/min) 1.5 Oxygen Delivery Method Nasal Cannula Weight: 268 lb 3.183 oz Body Mass Index (BMI) 34.4 Intake and Output for Last 24 Hours 05/19/20 05/20/20 05/21/20 23:59 23:59 23:59 Intake Total 2250 / 2250 1170 / 1570 400 / 400 Balance 2250 / 2250 1170 / 1570 400 / 400 Laboratory Results 05/21/20 06:57: WBC 6.9, RBC 4.84, Hgb 14.6, Hct 43.3, MCV 89.5, MCH 30.2, MCHC 33.7, RDW Std Deviation 39.2, RDW Coeff of Audrey 11.9, Plt Count 211, MPV 10.0 05/21/20 06:57: Sodium 139, Potassium 4.1, Chloride 107, Carbon Dioxide 25.0, Anion Gap 7, BUN 23 H, Creatinine 1.01, Estim Creat Clear Calc 109.65, Est GFR (MDRD) Af Amer 103, Est GFR (MDRD) Non-Af 85, BUN/Creatinine Ratio 22.8 H, Glucose 103, Calcium 8.2 L, Total Bilirubin 0.50, AST 34, ALT 55, Alkaline Phosphatase 52, Total Protein 6.4, Albumin 3.1 L, Globulin 3.3, Albumin/Globulin Ratio 0.9 Current Medications Acetaminophen (Acetaminophen 325 Mg Tablet) 650 mg PO Q6H PRN PRN PRN Reason: Pain Score 1-10/Temp > 100.7 F Last Admin: 05/18/20 15:38 Dose: 650 mg Documented by: Albuterol Sulfate (Albuterol 2.5 Mg/3 Ml Vial.Neb.) 2.5 mg INHALATION Q2H PRN PRN PRN Reason: Shortness of Breath/Wheezing Last Admin: 05/19/20 05:34 Dose: 2.5 mg Documented by: Apixaban (Apixaban 5 Mg Tablet) 10 mg PO BID [facility] Stop: 05/25/20 22:01 Last Admin: 05/20/20 22:14 Dose: 10 mg Documented by: Apixaban (Apixaban 5 Mg Tablet) 5 mg PO BID [facility] Ascorbic Acid (Ascorbic Acid 500 Mg Tablet) 2,000 mg PO DAILY [facility] Last Admin: 05/20/20 10:32 Dose: 2,000 mg Documented by: Dexamethasone (Dexamethasone 4 Mg Tablet) 6 mg PO DAILY [facility] Stop: 05/27/20 10:01 Last Admin: 05/20/20 10:34 Dose: 6 mg Documented by: Docusate Sodium (Docusate Sodium 100 Mg Capsule) 100 mg PO BID PRN PRN PRN Reason: Constipation Guaifenesin (Guaifenesin 1,200 Mg Tablet) 1,200 mg PO BID [facility] Last Admin: 05/20/20 22:14 Dose: 1,200 mg Documented by: Remdesivir 100 mg/ Sodium (Chloride) 250 mls @ 125 mls/hr IV DAILY [facility] Stop: 05/22/20 11:59 Last Infusion: 05/20/20 12:40 Dose: Infused Documented by: Melatonin (Melatonin 3 Mg Tablet) 3 mg PO QHS PRN PRN PRN Reason: INSOMNIA Ondansetron HCl (Ondansetron 4 Mg/2 Ml Vial) 4 mg IV Q8H PRN PRN PRN Reason: NAUSEA/VOMITING Sodium Chloride (0.9% Saline Lock 10 Ml Syringe) 10 - 40 ml IV UD PRN PRN Reason: SALINE FLUSH Last Admin: 05/20/20 10:35 Dose: 10 ml Documented by: Throat Lozenges (Benzocaine/Menthol 1 Lozenge) 1 lozenge MUCOUS MEM Q2H PRN PRN PRN Reason: SORE THROAT Last Admin: 05/19/20 05:10 Dose: 1 lozenge Documented by: Zinc Sulfate (Zinc Sulfate (50mg Elemental) 220 Mg Capsule) 220 mg PO DAILY [facility] Last Admin: 05/20/20 10:33 Dose: 220 mg Documented by: Discharge Activity: May Not Drive - SELF Quarantine for 2 weeks from symtom onset, until 05/26/2019 Call your doctor if you observe: Fever of 101 or Higher, Coldness, Increased Pain, Numbness or Tingling, Change in Color, Inability to urinate, Inability to have a bowel movement, Shortness of breath, Dizziness, Fainting spells, Swelling in the ankles, Chest pain, Prolonged hiccoughing, Increased palpitations (irregular heartbeat), Calf discomfort, Uncontrolled pain Home Medications: Medications to take at Discharge Ascorbic Acid [Vitamin C] 2,000 mg PO DAILY 05/18/20 Aspirin E.C. [Ecotrin] 325 mg PO DAILY@0800 05/18/20 Zinc 50 mg PO DAILY 05/18/20 Albuterol IH (ProAir) [Proair Hfa] 2 puff INHALATION Q4H PRN PRN #1 inhaler 05/21/20 Apixaban [Eliquis] 5 mg PO BID #60 tab 05/21/20 Apixaban [Eliquis] 10 mg PO BID #16 tab 05/21/20 Dexamethasone [Decadron] 6 mg PO DAILY #6 tab 05/21/20 Guaifenesin/Pseudoephedrne HCl [Mucinex D ER 1,200-120 mg Tab] 1 ea PO BID #14 tab.er.12h 05/21/20 Following Prescriptions Were Given to Patient: Dexamethasone [Decadron] 6 mg PO DAILY #6 tab Transmission Status: Received by [facility] Apixaban [Eliquis] 5 mg PO BID #60 tab Transmission Status: Received by [facility] Apixaban [Eliquis] 10 mg PO BID #16 tab Transmission Status: Received by [facility] Guaifenesin/Pseudoephedrne HCl [Mucinex D ER 1,200-120 mg Tab] 1 ea PO BID #14 tab.er.12h Transmission Status: Received by [facility] Albuterol IH (ProAir) [Proair Hfa] 2 puff INHALATION Q4H PRN PRN #1 inhaler PRN Reason: Shortness Of Breath Transmission Status: Received by [facility] Primary Care Physician: Faustino Ellis MD [Primary Care Provider] - Please follow up with your Primary Care Physician in: in 2 weeks Medical Necessity - Tobacco Use Smoking Status: Never smoker Tobacco Use: Non-smoker Meaningful Use Info Meaningful Use Diagnoses (Choose all that apply): None applicable Inpatient E&M: [id number] [facility]
[2020-05-21] MEDS: 0.9% Saline Lock 10 ML Syringe IV (09:23)
[2020-05-21] MEDS: APIXABAN 5 MG TABLET 10 MG PO (09:30)
[2020-05-21] MEDS: dexAMETHasone 4 MG Tablet 6 MG PO (09:30)
[2020-05-21] MEDS: Ascorbic Acid 500 MG Tablet 2000 MG PO (09:31)
[2020-05-21] MEDS: guaiFENesin 1,200 MG Tablet 1200 MG PO (09:31)
--- NOTE | 2020-05-21 10:49 | CASEMGMT ---
TRANG HARRINGTON assessment: Phone interview with patient for initial transition planning/care coordination assessment due to COVID precautions. TRANG HARRINGTON introduced self and role at [facility], pt voices understanding and consents to assessment at this time. Pt is A/Ox4 at this time and answers all questions appropriately at this time. Pt speaks in full sentences and states has been on room air since last pm. Pt states no concerns with getting supplies at this time and states no need for oxygen at discharge. Care providers, pharmacy, and demographics verified at this time. Presentation: Dx'd w/ COVID 05/12/2020-has had intermittent fevers, coughing, increased SOB, decreased O2 sat at home 87% Admitting dx: COVID 19 pna PCP: Elisabet Specialists: roxanna Lee Preferred [facility]acy: [facility] Insurance: MMO Prescription Benefit: MMO Living Will/HPOA: Pt states does not have LW/HPOA and declines AD info at this time. LNOK: Zara Stout, ; Clinton Stout, brother Living Arrangements: Pt states lives with in 1 story home and states no concerns at home at this time. Pt states is independent with ADL's. Transportation: Pt states drives self and states no transportation concerns at this time. DME/HHC: Pt states will be picking up a cpap on saturday and will begin to use at that time. Pt states no need for any further DME at this time. Pt states no hx of HHC or SNF in the past. Pt states no concerns with going home at time of discharge. 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 Pt states does not smoke cigarettes or drink ETOH. Pt states no further concerns/needs at this time. CM to follow for home oxygen and any further discharge planning/needs. Advised pt to ask for CM if any further questions/concerns/needs arise, voices understanding. Pt Goal: [place]
== END 2020-05-21 13:25 | disposition home or self-care (01) | DRG 177 ==
LOC: ED 13:25 → MS2 14:14
PROVIDERS: Admitting Provider Internal Medicine; Emergency Provider Emergency Medicine; PCP Family Medicine; Visit Provider Internal Medicine
DX: U07.1 COVID-19 (principal); I26.99 Other pulmonary embolism without acute cor pulmonale; J12.89 Other viral pneumonia; E66.9 Obesity, unspecified; R09.02 Hypoxemia; G47.33 Obstructive sleep apnea (adult) (pediatric); Z68.34 Body mass index [BMI] 34.0-34.9, adult; K64.9 Unspecified hemorrhoids; D72.819 Decreased white blood cell count, unspecified; D69.6 Thrombocytopenia, unspecified; Z79.82 Long term (current) use of aspirin
CPT/HCPCS: 36415; 71045; 71275; 80048; 80053; 82248; 82962; 83735; 84100; 84484; 85025; 85027; 85379; 85384; 93005; 94640; 94660; 94667; 97161; 99251; 99285; J7050; Q9967; A4216; G0463

== ENCOUNTER → 2021-01-11 10:52 | Outpatient (CLI) | payer OTHER, SELFPAY ==
--- NOTE | 2021-01-11 10:59 | VDLE_ITS ---
Reason For Study: Swelling RIGHT GSV is normal. CFV is compressible, spontaneous, phasic, competent and demonstrates normal augmentation. FV is compressible, spontaneous, phasic, competent and demonstrates normal augmentation. POP V is compressible, spontaneous, phasic, competent and demonstrates normal augmentation. T/P Trunk is compressible. PTV is compressible. RT PerV is compressible. GastrocV is DILATED and partially NONCOMPRESSIBLE with rouleaux flow noted. Large nonvascularized structure noted in the proximal posterior calf area. Procedure This is a venous duplex using B-mode, color flow and spectral Doppler. Exam performed in department. A preliminary report was called and/or faxed to [facility]. VL/Venous Duplex US, Unilateral Interpretation Summary Acute deep venous thrombosis right gastrocnemius vein with rouleaux flow noted. Nonvascularized structure in the proximal posterior right calf with heterogenou s appearance possible hematoma. Clinical correlation would be appropriate. Patent and compressible right great saphenous vein Ordering Physician: Meg Kang Referring Physician: Faustino Ellis Performed By: Afia Lane RVT
== END ==
PROVIDERS: PCP Family Medicine; Referring Provider Nurse Practitioner Acute Care; Visit Provider Nurse Practitioner Acute Care
DX: M79.89 Other specified soft tissue disorders (principal)
CPT/HCPCS: 93971